=== PATIENT | male | born 1935 | race Caucasian/White ===

== ENCOUNTER 2018-04-28 08:54 | Emergency (ER) | payer MEDICARE, BC ==
--- NOTE | 2018-04-28 09:24 | EDM.PDOC ---
ED HPI GENERAL MEDICAL PROBLEM - General Chief Complaint: General Stated Complaint: RECTAL BLEEDING Time Seen by Provider: 04/28/18 09:20 Source of Information: Reports: Patient, Family, Old Records History Limitations: Reports: No Limitations - History of Present Illness INITIAL COMMENTS - FREE TEXT/NARRATIVE: 82 yo male on warfarin had a tooth pulled at the dentist's office yesterday. Did not tell the dentist he was on warfarin, has been bleeding since the extraction until now. Seems to be stopped currently. Was up with the bleeding most of the night. 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 (see below) (tea bags) - Related Data Allergies Allergy/AdvReac Type Severity Reaction Status Date / Time No Known Allergies Allergy Verified 06/10/17 09:33 Home Meds: Home Meds Allopurinol [Zyloprim] 100 mg PO DAILY 06/10/17 [History] Allopurinol [Zyloprim] 300 mg PO DAILY 06/10/17 [History] Ascorbic Acid [Vitamin C] 1,000 mg PO DAILY 06/10/17 [History] Carbidopa/Levodopa [Carbidopa-Levo 25-100 MG ODT] 1.5 mg PO TID 06/10/17 [ History] Magnesium Oxide [Magnesium] 400 mg PO DAILY 06/10/17 [History] Metoprolol Succinate [Toprol XL 100mg] 50 mg PO DAILY 06/10/17 [History] Simvastatin [Zocor] 20 mg PO BEDTIME 06/10/17 [History] Terazosin [Hytrin] 10 mg PO BEDTIME 06/10/17 [History] Ubidecarenone [Coenzyme Q10] 100 mg PO DAILY 06/10/17 [History] Warfarin [Coumadin] 2 mg PO MO 06/10/17 [History] Meclizine HCl 12.5 mg PO ASDIRECTED PRN 04/28/18 [History] Past Medical History Cardiovascular History: Reports: Afib Musculoskeletal History: Reports: Other (See Below) Neurological History: Reports: Parkinson's - Past Surgical History Musculoskeletal Surgical History: Reports: Knee Replacement ED ROS GENERAL - Review of Systems Review Of Systems: See Below Constitutional: Reports: Weakness HEENT: Reports: Other (bleeding from site of dental extraction. ) Respiratory: Reports: No Symptoms Cardiovascular: Reports: No Symptoms GI/Abdominal: Reports: No Symptoms : Reports: No Symptoms Musculoskeletal: Reports: No Symptoms Skin: Reports: No Symptoms Neurological: Reports: No Symptoms ED EXAM, GENERAL - Physical Exam Exam: See Below Exam Limited By: No Limitations General Appearance: Alert, WD/WN, No Apparent Distress, Other (pale) Eye Exam: Bilateral Eye: Normal Inspection, Other (pale conjunctivas) Ears: Normal External Exam, Normal Canal, Hearing Loss Ear Exam: Bilateral Ear: Auricle Normal Nose: Normal Inspection, Normal Mucosa, No Blood Throat/Mouth: Normal Inspection, Normal Lips, Normal Oropharynx, Normal Voice, No Airway Compromise Head: Atraumatic, Normocephalic Neck: Normal Inspection, Supple Respiratory/Chest: No Respiratory Distress, Lungs Clear, Normal Breath Sounds, No Accessory Muscle Use Cardiovascular: Regular Rate, Rhythm, No Edema GI/Abdominal: Normal Bowel Sounds, Soft, Non-Tender, No Distention Extremities: Normal Inspection, Normal Range of Motion, Non-Tender, No Pedal Edema Neurological: Alert, Oriented, CN II-XII Intact, Normal Cognition, No Motor/ Sensory Deficits Psychiatric: Normal Affect, Normal Mood Skin Exam: Warm, Dry, Intact, No Rash, Pallor Lymphatic: No Adenopathy Course - Vital Signs Text/Narrative:: Orthostats better after a liter of IV fluids Last Recorded V/S: Last Vital Signs Temp 34.9 C L 04/28/18 09:30 Pulse 61 04/28/18 09:30 Resp 13 04/28/18 09:30 BP 99/52 L 04/28/18 09:30 Pulse Ox 95 04/28/18 09:30 Orthostatic Blood Pressure [ 86/46 Standing] Orthostatic Blood Pressure [ 94/51 Sitting] Orthostatic Blood Pressure [ 132/85 Supine] - Orders/Labs/Meds Orders: Active Orders 24 hr Category Date Time Status Orthostatic Vital Signs [RC] ASDIRECTED Care 04/28/18 09:42 Active Orthostatic Vital Signs [RC] ASDIRECTED Care 04/28/18 12:04 Active Labs: Laboratory Tests 04/28/18 04/28/18 04/28/18 Range/Units 09:27 09:27 10:31 WBC 10.7 (4.5-11.0) K/uL RBC 3.90 L (4.30-5.90) M/uL Hgb 12.3 (12.0-15.0) g/dL Hct 37.6 L (40.0-54.0) % MCV 96 (80-98) fL MCH 32 H (27-31) pg MCHC 33 (32-36) % Plt Count 161 (150-400) K/uL PT 26.8 H (9.5-12.0) sec INR 2.41 H (0.80-1.20) Sodium 144 (140-148) mmol/L Potassium 5.2 (3.6-5.2) mmol/L Chloride 110 H (100-108) mmol/L Carbon Dioxide 22 (21-32) mmol/L Anion Gap 17.2 H (5.0-14.0) mmol/L BUN 58 H (7-18) mg/dL Creatinine 1.5 H (0.8-1.3) mg/dL Est Cr Clr Drug Dosing 34.27 mL/min Estimated GFR (MDRD) 45 L (>60) Glucose 189 H (74-106) mg/dL Calcium 9.2 (8.5-10.1) mg/dL Meds: Medications Discontinued Medications Generic Name Dose Route Start Last Admin Trade Name Freq PRN Reason Stop Dose Admin Lactated Ringer's 1,000 mls @ 1,000 mls/hr 04/28/18 10:31 04/28/18 10:48 Ringers, Lactated IV 04/28/18 11:30 1,000 mls/hr BOLUS ONE Administration Departure - Departure Time of Disposition: 12:25 Disposition: Home, Self-Care 01 Condition: Fair Clinical Impression: Oral bleeding, Orthostatic hypotension - Discharge Information Referrals: Jorge Manzo NP [Primary Care Provider] - Forms: ED Department Discharge - My Orders Last 24 Hours: My Active Orders 04/28/18 09:42 Orthostatic Vital Signs [RC] ASDIRECTED 04/28/18 12:04 Orthostatic Vital Signs [RC] ASDIRECTED - Assessment/Plan Last 24 Hours: My Active Orders 04/28/18 09:42 Orthostatic Vital Signs [RC] ASDIRECTED 04/28/18 12:04 Orthostatic Vital Signs [RC] ASDIRECTED
[2018-04-28] MEDS ORDERED: Lactated Ringers 1,000 ML IV ONE (10:31)
== END 2018-04-28 12:54 | disposition home or self-care (01) ==
LOC: JP.ED 08:54
DX: K13.79 Other lesions of oral mucosa (principal); I95.1 Orthostatic hypotension; I48.91 Unspecified atrial fibrillation; G20 Parkinson's disease; Z79.01 Long term (current) use of anticoagulants; Z79.899 Other long term (current) drug therapy
CPT/HCPCS: 36415; 80048; 85027; 85610; 96360; 99283; 99284; J7120

== ENCOUNTER 2018-07-16 10:50 | Emergency (ER) | payer MEDICARE, OTHER, BC ==
--- NOTE | 2018-07-16 13:31 | EDM.PDOC ---
ED HPI GENERAL MEDICAL PROBLEM - General Chief Complaint: General Stated Complaint: WEAKNESS,SHAKY,PARKINSONS Time Seen by Provider: 07/16/18 13:31 Source of Information: Reports: Patient History Limitations: Reports: No Limitations - History of Present Illness INITIAL COMMENTS - FREE TEXT/NARRATIVE: pt had profound weakness last nite. He could bearly stand and was very difficult to transfer. He had been started on a ririvostigmine patch 3 days ahead of the visit. The family did contact neurology and it was felt that the patch may be causing his symptoms. Onset: Today Duration: Hour(s): Location: Reports: Generalized Associated Symptoms: Reports: Diaphoresis, Loss of Appetite, Weakness Left Flank Pain Score (Numeric/FACES): 3 - Related Data Allergies Allergy/AdvReac Type Severity Reaction Status Date / Time No Known Allergies Allergy Verified 06/10/17 09:33 Home Meds: Home Meds Allopurinol [Zyloprim] 100 mg PO DAILY 06/10/17 [History] Allopurinol [Zyloprim] 300 mg PO DAILY 06/10/17 [History] Ascorbic Acid [Vitamin C] 1,000 mg PO DAILY 06/10/17 [History] Carbidopa/Levodopa [Carbidopa-Levo 25-100 MG ODT] 1.5 mg PO TID 06/10/17 [ History] Magnesium Oxide [Magnesium] 400 mg PO DAILY 06/10/17 [History] Metoprolol Succinate [Toprol XL 100mg] 50 mg PO DAILY 06/10/17 [History] Simvastatin [Zocor] 20 mg PO BEDTIME 06/10/17 [History] Terazosin [Hytrin] 10 mg PO BEDTIME 06/10/17 [History] Ubidecarenone [Coenzyme Q10] 100 mg PO DAILY 06/10/17 [History] Warfarin [Coumadin] 2 mg PO MO 06/10/17 [History] Meclizine HCl 12.5 mg PO ASDIRECTED PRN 04/28/18 [History] Past Medical History HEENT History: Reports: Hard of Hearing, Impaired Vision Cardiovascular History: Reports: Afib Musculoskeletal History: Reports: Other (See Below) Neurological History: Reports: Parkinson's Other Psychiatric History: parkinsons - Infectious Disease History Infectious Disease History: Reports: Chicken Pox, Measles, Mumps - Past Surgical History Musculoskeletal Surgical History: Reports: Knee Replacement Social & Family History - Tobacco Use Smoking Status *Q: Never Smoker - Caffeine Use Caffeine Use: Reports: None - Recreational Drug Use Recreational Drug Use: No ED ROS GENERAL - Review of Systems Review Of Systems: See Below Constitutional: Reports: No Symptoms HEENT: Reports: No Symptoms Respiratory: Reports: No Symptoms Cardiovascular: Reports: No Symptoms Endocrine: Reports: No Symptoms GI/Abdominal: Reports: No Symptoms : Reports: No Symptoms Musculoskeletal: Reports: Other ( severe pain in rt hip) Neurological: Reports: No Symptoms ED EXAM, GENERAL - Physical Exam Exam: See Below Free Text/Narrative:: pt arrived with a history of weakness after a patch had been added for his dementia. He became very weak and he could bearly stand. Exam Limited By: No Limitations General Appearance: Alert, Mild Distress, Other (pupils are equal and reactive. ) Ears: Normal TMs Nose: Normal Inspection Throat/Mouth: Normal Inspection Head: Atraumatic Neck: Other (no carotid bruit) Respiratory/Chest: No Respiratory Distress Cardiovascular: Regular Rate, Rhythm GI/Abdominal: Soft, Non-Tender (Male) Exam: Normal Inspection, Deferred Rectal (Males) Exam: Deferred Back Exam: Normal Inspection Extremities: Normal Inspection Neurological: Alert, Oriented, Normal Cognition Psychiatric: Normal Affect Course - Vital Signs Last Recorded V/S: Last Vital Signs Temp 35.2 C 07/16/18 12:19 Pulse 83 07/16/18 12:19 Resp 11 L 07/16/18 12:19 BP 124/79 07/16/18 12:19 Pulse Ox 96 07/16/18 12:19 - Orders/Labs/Meds Orders: Active Orders 24 hr Category Date Time Status UA W/MICROSCOPIC [URIN] Urgent Lab 07/16/18 13:29 Ordered Labs: Laboratory Tests 07/16/18 07/16/18 07/16/18 Range/Units 13:40 13:40 13:40 WBC 8.2 (4.5-11.0) K/uL RBC 4.47 (4.30-5.90) M/uL Hgb 13.8 (12.0-15.0) g/dL Hct 42.3 (40.0-54.0) % MCV 95 (80-98) fL MCH 31 (27-31) pg MCHC 33 (32-36) % Plt Count 142 L (150-400) K/uL Neut % (Auto) 72 H (36-66) % Lymph % (Auto) 18 L (24-44) % [place] % (Auto) 9 H (2-6) % Eos % (Auto) 1 L (2-4) % Baso % (Auto) 0 (0-1) % PT 21.7 H (9.5-12.0) sec INR 2.05 H (0.80-1.20) Sodium 142 (140-148) mmol/L Potassium 4.3 (3.6-5.2) mmol/L Chloride 106 (100-108) mmol/L Carbon Dioxide 28 (21-32) mmol/L Anion Gap 8.4 (5.0-14.0) mmol/L BUN 24 H D (7-18) mg/dL Creatinine 1.3 (0.8-1.3) mg/dL Est Cr Clr Drug Dosing 40.92 mL/min Estimated GFR (MDRD) 53 L (>60) Glucose 87 (74-106) mg/dL Calcium 10.1 (8.5-10.1) mg/dL Total Bilirubin 2.1 H (0.2-1.0) mg/dL AST 16 (15-37) U/L ALT 9 L (12-78) U/L Alkaline Phosphatase 106 (46-116) U/L Total Protein 6.2 L (6.4-8.2) g/dL Albumin 3.2 L (3.4-5.0) g/dL Globulin 3.0 (2.3-3.5) g/dL Albumin/Globulin Ratio 1.1 L (1.2-2.2) - Re-Assessments/Exams Free Text/Narrative Re-Assessment/Exam: 07/16/18 15:26 cat scan of the head was normal. Pt ate well. He seemes better at this time. The famikly felt like they could take care of him at home. His patch will be stopped. He will follow with Jorge Browning. Departure - Departure Time of Disposition: 15:07 Disposition: Home, Self-Care 01 Condition: Fair Clinical Impression: Adverse effects of medication, Parkinsons disease - Discharge Information Referrals: Jorge Manzo, ASSISTANT PORTFOL[employer] MANAGER [Primary Care Provider] - Forms: ED Department Discharge Care Plan Goals: stop the rivestigimne patches, cont same meds. encourage fluids, follow up appt with Jorge Browning in 4-5 days. - My Orders Last 24 Hours: My Active Orders 07/16/18 13:29 UA W/MICROSCOPIC [URIN] Urgent - Assessment/Plan Last 24 Hours: My Active Orders 07/16/18 13:29 UA W/MICROSCOPIC [URIN] Urgent
--- NOTE | 2018-07-16 13:51 | CR ---
Chest 1V Frontal HISTORY: sob COMPARISON: 10/25/2012 FINDINGS: Portable chest, 1334 hours. Lungs appear clear and normally aerated. Cardiomediastinal silhouette is within normal limits. No vas cular redistribution or pleural fluid can be seen. Bony structures and soft tissues are unremarkable. Electronic device overlying the lower left chest is presumed to be exterior to the patient. IMPRESSION: No acute chest abnormality or significant interval change is identified.
--- NOTE | 2018-07-16 15:01 | CT ---
Head wo Cont HISTORY: confusion, difficulty standing. TECHNIQUE: Spiral noncontrast CT scan of the brain was obtained along with high-resolution bone windo w reconstructions. Auto dosage and iterative reconstruction techniques were employed. FINDINGS: No acute intracranial hemorrhage or infarct is identified. There is no mass lesion, mass effect, or m idline shift. No abnormal extra-axial fluid collections are seen. There are vague low-attenuation lay nges deep white matter cerebral hemispheres bilaterally consistent with chronic microvascular ischemi c disease. There is mild to moderate generalized cerebral atrophy. There is mild atherosclerotic calc ification in the intracavernous portion of the distal ICA bilaterally. Mucosal thickening is noted in the ethmoid sinuses bilaterally. Mastoid air cells are clear. Bone windows show no evidence for skul l fracture. IMPRESSION: 1. No hemorrhage, infarct, or other acute intracranial abnormality is identified. 2. Mild to moderate generalized cerebral atrophy. 3. Chronic deep white matter microvascular ischemic changes are noted through hemispheres bilaterally . 4. Mild chronic ethmoid sinus disease bilaterally. Findings versus with Dr. Das in the emergency department at 1457 hours.
== END 2018-07-16 15:42 | disposition home or self-care (01) ==
LOC: JP.ED 10:50
DX: R53.1 Weakness (principal); T44.1X5A Adverse effect of other parasympathomimetics [cholinergics], initial encounter; G20 Parkinson's disease; I48.91 Unspecified atrial fibrillation; Z79.899 Other long term (current) drug therapy
CPT/HCPCS: 36415; 70450; 70450-26; 71045; 71045-26; 80053; 85025; 85610; 99283; 99285-25

== ENCOUNTER 2020-02-17 13:09 | Emergency (ER) | payer BC, MEDICARE, OTHER ==
[2020-02-17] MEDS ORDERED: Sodium Chloride 0.9% 10 ML Syringe FLUSH PRN (14:12)
--- NOTE | 2020-02-17 14:17 | EDM.PDOC ---
ED HPI GENERAL MEDICAL PROBLEM - General Chief Complaint: Genitourinary Problem Stated Complaint: uti? Time Seen by Provider: 02/17/20 14:10 Source of Information: Reports: Patient, Family, RN Notes Reviewed History Limitations: Reports: No Limitations - History of Present Illness INITIAL COMMENTS - FREE TEXT/NARRATIVE: 84-year-old gentleman presents emergency department with a complaint of urinary retention he is concerned he may have a urinary tract infection creased urine output last night with a foul order he has not been able to urinate today and has had poor oral intake - Related Data Allergies Allergy/AdvReac Type Severity Reaction Status Date / Time No Known Allergies Allergy Verified 02/17/20 13:32 Home Meds: Home Meds Allopurinol [Zyloprim] 300 mg PO DAILY 06/10/17 [History] Ascorbic Acid [Vitamin C] 1,000 mg PO DAILY 06/10/17 [History] Carbidopa/Levodopa [Carbidopa-Levo 25-100 MG ODT] 2 tab PO QID 06/10/17 [History ] Magnesium Oxide [Magnesium] 400 mg PO DAILY 06/10/17 [History] Metoprolol Succinate [Toprol XL 100mg] 100 mg PO DAILY 06/10/17 [History] Terazosin [Hytrin] 10 mg PO BEDTIME 06/10/17 [History] Ubidecarenone [Coenzyme Q10] 100 mg PO DAILY 06/10/17 [History] Warfarin [Coumadin] 2 mg PO ASDIRECTED 06/10/17 [History] Furosemide 20 mg PO DAILY 10/17/18 [History] Past Medical History HEENT History: Reports: Hard of Hearing, Impaired Vision Cardiovascular History: Reports: Afib, High Cholesterol, Hypertension Gastrointestinal History: Reports: Diverticulosis Genitourinary History: Reports: Urinary Incontinence Musculoskeletal History: Reports: Back Pain, Chronic, Gout, Other (See Below) Neurological History: Reports: Parkinson's Psychiatric History: Reports: Other (See Below) Other Psychiatric History: parkinsons Hematologic History: Reports: Anticoagulation Therapy - Infectious Disease History Infectious Disease History: Reports: Measles - Past Surgical History Head Surgeries/Procedures: Reports: None HEENT Surgical History: Reports: Cataract Surgery Cardiovascular Surgical History: Reports: Other (See Below) Other Cardiovascular Surgeries/Procedures: Inserted Loop Recorder for A-Fib monitorng GI Surgical History: Reports: Small Bowel Neurological Surgical History: Reports: Laminectomy Musculoskeletal Surgical History: Reports: Knee Replacement, Shoulder Surgery Dermatological Surgical History: Reports: None Social & Family History - Tobacco Use Smoking Status *Q: Never Smoker - Caffeine Use Caffeine Use: Reports: Coffee Caffeine Use Comment: very little - Recreational Drug Use Recreational Drug Use: No ED ROS GENERAL - Review of Systems Review Of Systems: See Below Constitutional: Reports: No Symptoms HEENT: Reports: No Symptoms Respiratory: Reports: No Symptoms Cardiovascular: Reports: No Symptoms GI/Abdominal: Reports: No Symptoms : Reports: Urinary Retention ED EXAM, RENAL/ - Physical Exam Exam: See Below Exam Limited By: No Limitations General Appearance: Alert, WD/WN, No Apparent Distress Respiratory/Chest: No Respiratory Distress, Lungs Clear, Normal Breath Sounds, No Accessory Muscle Use, Chest Non-Tender Cardiovascular: Regular Rate, Rhythm, No Murmur GI/Abdominal: Soft, Non-Tender Course - Vital Signs Last Recorded V/S: Last Vital Signs Temp 97.7 F 02/17/20 13:31 Pulse 89 02/17/20 13:31 Resp 16 02/17/20 13:31 BP 99/70 02/17/20 13:31 Pulse Ox 96 02/17/20 13:31 - Orders/Labs/Meds Orders: Active Orders 24 hr Category Date Time Status Peripheral IV Care [RC] . DIRECTED Care 02/17/20 14:14 Active Sodium Chloride 0.9% [Saline Flush] Med 02/17/20 14:12 Active 10 ml FLUSH ASDIRECTED PRN Peripheral IV Insertion Adult [OM.PC] Urgent Oth 02/17/20 14:12 Ordered Medication Orders Sodium Chloride (Saline Flush) 10 ml FLUSH ASDIRECTED PRN PRN Reason: Keep Vein Open Last Admin: 02/17/20 14:33 Dose: 10 ml Labs: Laboratory Tests 02/17/20 02/17/20 02/17/20 Range/Units 14:23 14:23 14:23 WBC 12.6 H (4.5-11.0) K/uL RBC 4.47 (4.30-5.90) M/uL Hgb 14.2 (12.0-15.0) g/dL Hct 43.1 (40.0-54.0) % MCV 96 (80-98) fL MCH 32 H (27-31) pg MCHC 33 (32-36) % Plt Count 153 (150-400) K/uL Neut % (Auto) 79 H (36-66) % Lymph % (Auto) 13 L (24-44) % [place] % (Auto) 8 H (2-6) % Eos % (Auto) 0 L (2-4) % Baso % (Auto) 0 (0-1) % PT 28.6 H (9.5-12.0) sec INR 2.81 H (0.80-1.20) Sodium (140-148) mmol/L Potassium (3.6-5.2) mmol/L Chloride (100-108) mmol/L Carbon Dioxide (21-32) mmol/L Anion Gap (5.0-14.0) mmol/L BUN (7-18) mg/dL Creatinine (0.8-1.3) mg/dL Est Cr Clr Drug Dosing mL/min Estimated GFR (MDRD) (>60) Glucose (74-106) mg/dL Calcium (8.5-10.1) mg/dL Urine Color (YELLOW) Urine Appearance (CLEAR) Urine pH (5.0-8.0) Ur Specific [place] (1.008-1.030) Urine Protein (NEGATIVE) mg/dL Urine Glucose (UA) (NEGATIVE) mg/dL Urine Ketones (NEGATIVE) mg/dL Urine Occult Blood (NEGATIVE) Urine Nitrite (NEGATIVE) Urine Bilirubin (NEGATIVE) Urine Urobilinogen (0.2-1.0) EU/dL Ur Leukocyte Esterase (NEGATIVE) Urine RBC (0-5) Urine WBC (0-5) Ur Epithelial Cells Amorphous Sediment Urine Bacteria Urine Mucus 02/17/20 Range/Units 15:19 WBC (4.5-11.0) K/uL RBC (4.30-5.90) M/uL Hgb (12.0-15.0) g/dL Hct (40.0-54.0) % MCV (80-98) fL MCH (27-31) pg MCHC (32-36) % Plt Count (150-400) K/uL Neut % (Auto) (36-66) % Lymph % (Auto) (24-44) % [place] % (Auto) (2-6) % Eos % (Auto) (2-4) % Baso % (Auto) (0-1) % PT (9.5-12.0) sec INR (0.80-1.20) Sodium (140-148) mmol/L Potassium (3.6-5.2) mmol/L Chloride (100-108) mmol/L Carbon Dioxide (21-32) mmol/L Anion Gap (5.0-14.0) mmol/L BUN (7-18) mg/dL Creatinine (0.8-1.3) mg/dL Est Cr Clr Drug Dosing mL/min Estimated GFR (MDRD) (>60) Glucose (74-106) mg/dL Calcium (8.5-10.1) mg/dL Urine Color [place] A (YELLOW) Urine Appearance Cloudy A (CLEAR) Urine pH 5.5 (5.0-8.0) Ur Specific [place] 1.025 (1.008-1.030) Urine Protein 100 H (NEGATIVE) mg/dL Urine Glucose (UA) Negative (NEGATIVE) mg/dL Urine Ketones Negative (NEGATIVE) mg/dL Urine Occult Blood Moderate H (NEGATIVE) Urine Nitrite Positive H (NEGATIVE) Urine Bilirubin Negative (NEGATIVE) Urine Urobilinogen 1.0 (0.2-1.0) EU/dL Ur Leukocyte Esterase Small H (NEGATIVE) Urine RBC Packed H (0-5) Urine WBC Packed H (0-5) Ur Epithelial Cells Rare Amorphous Sediment Not seen Urine Bacteria Many Urine Mucus Few Meds: Medications Generic Name Dose Route Start Last Admin Trade Name Freq PRN Reason Stop Dose Admin Sodium Chloride 10 ml 02/17/20 14:12 02/17/20 14:33 Saline Flush FLUSH 10 ml ASDIRECTED PRN Administration Keep Vein Open Departure - Departure Time of Disposition: 16:09 Disposition: Home, Self-Care 01 Condition: Fair Clinical Impression: UTI, Urinary tract infectious disease - Discharge Information Instructions: Urinary Tract Infection, Adult Referrals: Jorge Manzo NP [Primary Care Provider] - Forms: ED Department Discharge Additional Instructions: Take full course of antibiotics,, please followup with your primary care provider in 3-5 days if not better, please call return to the emergency department with worsening of symptoms. Sepsis Event Note - Evaluation Sepsis Screening Result: No Definite Risk - Focused Exam Vital Signs: Vital Signs Temp Pulse Resp BP Pulse Ox 02/17/20 13:31 97.7 F 89 16 99/70 96 02/17/20 13:28 97.7 F 89 16 99/70 96 Date Exam was Performed: 02/17/20 Time Exam was Performed: 16:07 - My Orders Last 24 Hours: My Active Orders 02/17/20 14:12 Sodium Chloride 0.9% [Saline Flush] 10 ml FLUSH ASDIRECTED PRN Peripheral IV Insertion Adult [OM.PC] Urgent 02/17/20 14:14 Peripheral IV Care [RC] . DIRECTED - Assessment/Plan Last 24 Hours: My Active Orders 02/17/20 14:12 Sodium Chloride 0.9% [Saline Flush] 10 ml FLUSH ASDIRECTED PRN Peripheral IV Insertion Adult [OM.PC] Urgent 02/17/20 14:14 Peripheral IV Care [RC] . DIRECTED Plan: Assessment Acuity = acute Site and laterality = urinary tract infection Etiology = probable bacterial cause Manifestations = retention Location of injury = Home Lab values = WBC elevated 12.6 consistent leukocytosis INR therapeutic at 2.81 creatinine elevated 1.26 consistent with chronic renal failure stage G3 a urinalysis positive for nitrates packed RBCs and packed WBCs consistent with a hematuria and pyuria respectively Plan He was able to produce urine output with some fluid intake, prescription for Bactrim DS 1 tab p.o. twice daily x14 days and follow-up with his primary care in 3 to 5 days urine culture is pending This note was dictated using [employer] voice recognition software please call with any questions on syntax or grammar.
== END 2020-02-17 16:48 | disposition home or self-care (01) ==
LOC: JP.ED 13:09 → EEVIPCON 13:09 → JP.ED 16:48
DX: N39.0 Urinary tract infection, site not specified (principal); I48.91 Unspecified atrial fibrillation; E78.00 Pure hypercholesterolemia, unspecified; I10 Essential (primary) hypertension; G20 Parkinson's disease; Z79.899 Other long term (current) drug therapy
CPT/HCPCS: 36415; 51798; 80048; 81001; 85025; 85610; 87086; 87088; 87186; 99283

== ENCOUNTER 2020-08-24 05:09 | Emergency (ER) | payer MEDICARE ==
[2020-08-24] MEDS ORDERED: Ticagrelor 90 MG Tab PO ONE (05:22)
[2020-08-24] MEDS ORDERED: Heparin Sodium 5,000 Units/ML Vial IVPUSH ONE (05:22)
[2020-08-24] MEDS ORDERED: Nitroglycerin 0.4 MG Tab.SL SL PRN (05:22)
[2020-08-24] MEDS ORDERED: Sodium Chloride 0.9% 10 ML Syringe FLUSH PRN (05:22)
[2020-08-24] MEDS ORDERED: Morphine 2 MG/ML SYRINGE IVPUSH PRN (05:22)
[2020-08-24] MEDS ORDERED: Heparin Sodium/D5W 25,000 UNITS/500 ML BAG IV SCH (05:30)
[2020-08-24] MEDS ORDERED: Aspirin 81 MG Tab.Chew PO ONE (05:38)
--- NOTE | 2020-08-24 05:42 | EDM.PDOC ---
ED HPI GENERAL MEDICAL PROBLEM - General Chief Complaint: Chest Pain Stated Complaint: CHEST PAINS Time Seen by Provider: 08/24/20 05:20 Source of Information: Reports: Patient, RN Notes Reviewed History Limitations: Reports: No Limitations - History of Present Illness INITIAL COMMENTS - FREE TEXT/NARRATIVE: 84-year-old gentleman presents emergency department a complaint of chest pain, he states he has no history of heart disease however his father did have heart troubles when he was in his 80s he had a heart attack. He has no nausea vomiting diaphoresis or shortness of breath. States the pain is in the center of his chest rated 6 out of 10 chest pain Pain Score (Numeric/FACES): 5 - Related Data Allergies Allergy/AdvReac Type Severity Reaction Status Date / Time No Known Allergies Allergy Verified 08/24/20 05:34 Home Meds: Home Meds Allopurinol [Zyloprim] 300 mg PO DAILY 06/10/17 [History] Ascorbic Acid [Vitamin C] 1,000 mg PO DAILY 06/10/17 [History] Carbidopa/Levodopa [Carbidopa-Levo 25-100 MG ODT] 2 tab PO QID 06/10/17 [History] Magnesium Oxide [Magnesium] 400 mg PO DAILY 06/10/17 [History] Metoprolol Succinate [Toprol XL 100mg] 100 mg PO DAILY 06/10/17 [History] Terazosin [Hytrin] 10 mg PO BEDTIME 06/10/17 [History] Ubidecarenone [Coenzyme Q10] 100 mg PO DAILY 06/10/17 [History] Warfarin [Coumadin] 2 mg PO ASDIRECTED 06/10/17 [History] Furosemide 20 mg PO DAILY 10/17/18 [History] Past Medical History HEENT History: Reports: Hard of Hearing, Impaired Vision Cardiovascular History: Reports: Afib, High Cholesterol, Hypertension Gastrointestinal History: Reports: Diverticulosis Genitourinary History: Reports: Urinary Incontinence Musculoskeletal History: Reports: Back Pain, Chronic, Gout, Other (See Below) Neurological History: Reports: Parkinson's Psychiatric History: Reports: Other (See Below) Other Psychiatric History: parkinsons Hematologic History: Reports: Anticoagulation Therapy - Infectious Disease History Infectious Disease History: Reports: Measles - Past Surgical History Head Surgeries/Procedures: Reports: None HEENT Surgical History: Reports: Cataract Surgery Cardiovascular Surgical History: Reports: Other (See Below) Other Cardiovascular Surgeries/Procedures: Inserted Loop Recorder for A-Fib monitorng GI Surgical History: Reports: Small Bowel Neurological Surgical History: Reports: Laminectomy Musculoskeletal Surgical History: Reports: Knee Replacement, Shoulder Surgery Dermatological Surgical History: Reports: None Social & Family History - Tobacco Use Tobacco Use Status *Q: Never Tobacco User - Caffeine Use Caffeine Use: Reports: None Caffeine Use Comment: very little - Recreational Drug Use Recreational Drug Use: No ED ROS GENERAL - Review of Systems Review Of Systems: See Below Constitutional: Reports: No Symptoms HEENT: Reports: No Symptoms Respiratory: Reports: No Symptoms Cardiovascular: Reports: Chest Pain GI/Abdominal: Reports: No Symptoms ED EXAM, GENERAL - Physical Exam Exam: See Below Exam Limited By: No Limitations General Appearance: Alert, WD/WN, No Apparent Distress Respiratory/Chest: No Respiratory Distress, Lungs Clear, Normal Breath Sounds, No Accessory Muscle Use, Chest Non-Tender Cardiovascular: No Murmur, Irregularly Irregular GI/Abdominal: Soft, Non-Tender Extremities: No Pedal Edema Course - Vital Signs Last Recorded V/S: Last Vital Signs Temp 94.6 F L 08/24/20 05:10 Pulse 90 08/24/20 05:10 Resp 20 08/24/20 05:10 BP 137/96 H 08/24/20 05:10 Pulse Ox 95 08/24/20 05:10 - Orders/Labs/Meds Orders: Active Orders 24 hr Category Date Time Status Cardiac Monitoring [RC] STAT Care 08/24/20 05:22 Ordered Communication Order [RC] Per Unit Routine Care 08/24/20 05:22 Ordered Communication Order [RC] Per Unit Routine Care 08/24/20 05:22 Ordered EKG Documentation Completion [RC] ASDIRECTED Care 08/24/20 05:25 Ordered Peripheral IV Care [RC] . DIRECTED Care 08/24/20 05:24 Ordered BASIC METABOLIC PANEL,BMP [CHEM] Stat Lab 08/24/20 05:22 Ordered INR,PT,PROTHROMBIN TIME [COAG] Stat Lab 08/24/20 05:22 Ordered PTT,PARTIAL THROMBOPLSTIN TIME [COAG] Stat Lab 08/24/20 05:22 Ordered TROPONIN I [CHEM] Stat Lab 08/24/20 05:22 Ordered Heparin Sodium/D5W [Heparin 25,000 Units in D5W 500 ML] Med 08/24/20 05:30 Ordered 25,000 units in 500 ml IV TITRATE Morphine Med 08/24/20 05:22 Ordered 2 mg IVPUSH Q10M PRN Nitroglycerin [Nitrostat] Med 08/24/20 05:22 Ordered 0.4 mg SL Q5M PRN Sodium Chloride 0.9% [Saline Flush] Med 08/24/20 05:22 Ordered 10 ml FLUSH ASDIRECTED PRN Peripheral IV Insertion Adult [OM.PC] Stat Oth 08/24/20 05:22 Ordered EKG 12 Lead [EK] Stat Ther 08/24/20 05:22 Ordered Medication Orders Heparin Sodium/Dextrose (Heparin 25,000 Units In D5w 500 Ml) 25,000 units in 500 mls @ 0 mls/hr IV TITRATE CHUY; Protocol Morphine Sulfate (Morphine) 2 mg IVPUSH Q10M PRN PRN Reason: Chest Pain Stop: 08/25/20 05:25 Nitroglycerin (Nitrostat) 0.4 mg SL Q5M PRN PRN Reason: Chest Pain Stop: 08/25/20 05:25 Sodium Chloride (Saline Flush) 10 ml FLUSH ASDIRECTED PRN PRN Reason: Keep Vein Open Labs: Laboratory Tests 08/24/20 Range/Units 05:31 WBC 6.9 (4.5-11.0) K/uL RBC 4.73 (4.30-5.90) M/uL Hgb 15.2 H (12.0-15.0) g/dL Hct 46.2 (40.0-54.0) % MCV 98 (80-98) fL MCH 32 H (27-31) pg MCHC 33 (32-36) % Plt Count 92 L (150-400) K/uL Neut % (Auto) 50 (36-66) % Lymph % (Auto) 39 (24-44) % [place] % (Auto) 8 H (2-6) % Eos % (Auto) 3 (2-4) % Baso % (Auto) 0 (0-1) % Meds: Medications Generic Name Dose Route Start Last Admin Trade Name Freq PRN Reason Stop Dose Admin Heparin Sodium/Dextrose 25,000 units in 500 mls @ 0 mls/hr 08/24/20 05:30 Heparin 25,000 Units In D5w 500 Ml IV TITRATE CHUY Protocol 12 UNITS/KG/HR Morphine Sulfate 2 mg 08/24/20 05:22 Morphine IVPUSH 08/25/20 05:25 Q10M PRN Chest Pain Nitroglycerin 0.4 mg 08/24/20 05:22 Nitrostat SL 08/25/20 05:25 Q5M PRN Chest Pain Sodium Chloride 10 ml 08/24/20 05:22 Saline Flush FLUSH ASDIRECTED PRN Keep Vein Open Discontinued Medications Generic Name Dose Route Start Last Admin Trade Name Freq PRN Reason Stop Dose Admin Heparin Sodium (Porcine) 4,000 units 08/24/20 05:22 Heparin Sodium IVPUSH 08/24/20 05:23 BOLUS ONE Ticagrelor 180 mg 08/24/20 05:22 Brilinta PO 08/24/20 05:23 ONETIME ONE Departure - Departure Time of Disposition: 05:44 Disposition: DC/Tfer to Acute Hospital 02 Reason for Transfer *Q: Primary PCI Indicated Condition: Fair Clinical Impression: STEMI (ST elevation myocardial infarction) Qualifiers: Involved coronary artery: unspecified coronary artery Qualified Code(s): I21.3 - ST elevation (STEMI) myocardial infarction of unspecified site Referrals: Jorge Manzo NP [Primary Care Provider] - Sepsis Event Note (ED) - Evaluation Sepsis Screening Result: No Definite Risk - Focused Exam Vital Signs: Vital Signs Temp Pulse Resp BP Pulse Ox 08/24/20 05:10 94.6 F L 90 20 137/96 H 95 - My Orders Last 24 Hours: My Active Orders 08/24/20 05:22 Cardiac Monitoring [RC] STAT Communication Order [RC] Per Unit Routine Communication Order [RC] Per Unit Routine BASIC METABOLIC PANEL,BMP [CHEM] Stat INR,PT,PROTHROMBIN TIME [COAG] Stat PTT,PARTIAL THROMBOPLSTIN TIME [COAG] Stat TROPONIN I [CHEM] Stat Morphine 2 mg IVPUSH Q10M PRN Nitroglycerin [Nitrostat] 0.4 mg SL Q5M PRN Sodium Chloride 0.9% [Saline Flush] 10 ml FLUSH ASDIRECTED PRN Peripheral IV Insertion Adult [OM.PC] Stat EKG 12 Lead [EK] Stat 08/24/20 05:24 Peripheral IV Care [RC] . DIRECTED 08/24/20 05:25 EKG Documentation Completion [RC] ASDIRECTED 08/24/20 05:30 Heparin Sodium/D5W [Heparin 25,000 Units in D5W 500 ML] 25,000 units in 500 ml IV TITRATE - Assessment/Plan Last 24 Hours: My Active Orders 08/24/20 05:22 Cardiac Monitoring [RC] STAT Communication Order [RC] Per Unit Routine Communication Order [RC] Per Unit Routine BASIC METABOLIC PANEL,BMP [CHEM] Stat INR,PT,PROTHROMBIN TIME [COAG] Stat PTT,PARTIAL THROMBOPLSTIN TIME [COAG] Stat TROPONIN I [CHEM] Stat Morphine 2 mg IVPUSH Q10M PRN Nitroglycerin [Nitrostat] 0.4 mg SL Q5M PRN Sodium Chloride 0.9% [Saline Flush] 10 ml FLUSH ASDIRECTED PRN Peripheral IV Insertion Adult [OM.PC] Stat EKG 12 Lead [EK] Stat 08/24/20 05:24 Peripheral IV Care [RC] . DIRECTED 08/24/20 05:25 EKG Documentation Completion [RC] ASDIRECTED 08/24/20 05:30 Heparin Sodium/D5W [Heparin 25,000 Units in D5W 500 ML] 25,000 units in 500 ml IV TITRATE Plan: Assessment Acuity = acute Site and laterality = ST elevation myocardial infarction leads V4 and V5 complicated with a right bundle branch block Etiology = probable coronary artery disease Manifestations = angina Location of injury = Home Lab values = EKG describes ST changes above lab work pending Plan Called and discussed case with Dr. Polanco braid folder [facility] at 540 he kindly accepted the patient in transport thus far he has been given 180 mg Brilinta 4000 unit bolus of heparin heparin drip will be initiated in route he has received 4 baby aspirin one nitroglycerin which provided no relief and 2 mg of morphine which did provide some relief however it did drop his blood pressure he will be transported via EMS ground This note was dictated using [employer] voice recognition software please call with any questions on syntax or grammar.
== END 2020-08-24 06:04 ==
LOC: JP.ED 05:09
DX: I21.3 ST elevation (STEMI) myocardial infarction of unspecified site (principal); I48.91 Unspecified atrial fibrillation; I10 Essential (primary) hypertension; G20 Parkinson's disease; Z79.899 Other long term (current) drug therapy; M10.9 Gout, unspecified
CPT/HCPCS: 36415; 80048; 84484; 85025; 85610; 85730; 93005; 96374; 96375; 99285; A9270; J1644; J2270; 93010

== ENCOUNTER 2020-09-18 19:56 | Emergency (ER) | payer MEDICARE ==
[2020-09-18] MEDS ORDERED: Sodium Chloride 0.9% 10 ML Syringe FLUSH PRN (20:10)
--- NOTE | 2020-09-18 20:26 | EDM.PDOC ---
ED HPI GENERAL MEDICAL PROBLEM - General Chief Complaint: Cardiovascular Problem Stated Complaint: CHEST PAIN Time Seen by Provider: 09/18/20 20:05 Source of Information: Reports: Patient, Family, Old Records, RN History Limitations: Reports: Other (patient is a poor historian) - History of Present Illness INITIAL COMMENTS - FREE TEXT/NARRATIVE: 84 yo male with an [place] reportedly 3 weeks ago tx'd at [facility] presents with CP that he says began tonight, but the says he's had much of the day. He got a single NTG tablet en route to the hospital with partial relief. No nausea or SOB. His says Plavix was the only new med prescribed after the recent [place]. He has no idea what his normal HR is. Onset: Today Onset Date: 09/18/20 Duration: Hour(s):, Improving (after NTG) Location: Reports: Chest Quality: Reports: Other ("its pretty violent") Severity: Mild (now, was worse earlier) Improves with: Reports: Medication (NTG) Worsens with: Reports: Other (unknown) Context: Reports: Other (See HPI) Associated Symptoms: Reports: Chest Pain Treatments FACTORY REPRESENTATIVE: Reports: Nitroglycerin (x one) - Related Data Allergies Allergy/AdvReac Type Severity Reaction Status Date / Time rivastigmine Allergy Cannot Verified 09/18/20 20:31 Remember Home Meds: Home Meds Ascorbic Acid [Vitamin C] 1,000 mg PO DAILY 06/10/17 [History] Carbidopa/Levodopa [Carbidopa-Levo 25-100 MG ODT] 2 tab PO QID 06/10/17 [History] Magnesium Oxide [Magnesium] 400 mg PO DAILY 06/10/17 [History] Metoprolol Succinate [Toprol XL 100mg] 100 mg PO DAILY 06/10/17 [History] Terazosin [Hytrin] 10 mg PO BEDTIME 06/10/17 [History] Furosemide 20 mg PO ASDIRECTED 10/17/18 [History] Albuterol [Ventolin HFA] 1 - 2 inh INH ASDIRECTED PRN 08/24/20 [History] Allopurinol [Zyloprim] 400 mg PO DAILY 08/24/20 [History] Ubidecarenone [Coenzyme Q10] 100 mg PO DAILY 08/24/20 [History] Warfarin [Coumadin] 1 mg PO DAILY 08/24/20 [History] Clopidogrel [Plavix] 75 mg PO DAILY 09/18/20 [History] Metoprolol Tartrate 25 mg PO Q12H #30 tablet 09/18/20 [Rx] Nitroglycerin 0.4 mg SL ASDIRECTED 09/18/20 [History] Past Medical History HEENT History: Reports: Hard of Hearing, Impaired Vision Cardiovascular History: Reports: Afib, High Cholesterol, Hypertension Gastrointestinal History: Reports: Diverticulosis Genitourinary History: Reports: Urinary Incontinence Musculoskeletal History: Reports: Back Pain, Chronic, Gout, Other (See Below) Neurological History: Reports: Parkinson's Psychiatric History: Reports: Other (See Below) Other Psychiatric History: parkinsons Hematologic History: Reports: Anticoagulation Therapy - Infectious Disease History Infectious Disease History: Reports: Measles - Past Surgical History Head Surgeries/Procedures: Reports: None HEENT Surgical History: Reports: Cataract Surgery Cardiovascular Surgical History: Reports: Other (See Below) Other Cardiovascular Surgeries/Procedures: Inserted Loop Recorder for A-Fib monitorng GI Surgical History: Reports: Small Bowel Neurological Surgical History: Reports: Laminectomy Musculoskeletal Surgical History: Reports: Knee Replacement, Shoulder Surgery Dermatological Surgical History: Reports: None Social & Family History - Caffeine Use Caffeine Use: Reports: None Caffeine Use Comment: very little ED ROS GENERAL - Review of Systems Review Of Systems: See Below Constitutional: Reports: No Symptoms HEENT: Reports: No Symptoms Respiratory: Reports: No Symptoms Cardiovascular: Reports: Chest Pain Endocrine: Reports: No Symptoms GI/Abdominal: Reports: No Symptoms : Reports: No Symptoms Musculoskeletal: Reports: No Symptoms Skin: Reports: No Symptoms Neurological: Reports: No Symptoms ED EXAM, GENERAL - Physical Exam Exam: See Below Exam Limited By: No Limitations General Appearance: Alert, WD/WN, No Apparent Distress Eye Exam: Bilateral Eye: Normal Inspection Ears: Normal External Exam, Normal Canal, Hearing Grossly Normal Ear Exam: Bilateral Ear: Auricle Normal, Canal Normal, TM normal Nose: Normal Inspection, No Blood Throat/Mouth: Normal Inspection, Normal Lips, Normal Oropharynx, Normal Voice, No Airway Compromise Head: Atraumatic, Normocephalic Neck: Normal Inspection Respiratory/Chest: No Respiratory Distress, Lungs Clear, Normal Breath Sounds, No Accessory Muscle Use Cardiovascular: Regular Rate, Rhythm, No Edema GI/Abdominal: Normal Bowel Sounds, Soft, Non-Tender, No Distention Extremities: Normal Inspection, Normal Range of Motion, Non-Tender, No Pedal Edema Neurological: Alert, Oriented, CN II-XII Intact, Normal Cognition, No Motor/Sen robert Deficits Psychiatric: Normal Affect, Normal Mood Skin Exam: Warm, Dry, Intact, Normal Color, No Rash #1 Interpretation EKG Date: 09/18/20 Time: 20:05 Rhythm: A-Fib Rate (Beats/Min): 79 [place]: Normal P-Wave: Absent QRS: LBBB ST-T: Normal QT: Normal Comparison: Change From Previous EKG (rate has slowed, PVC's present now.) Course - Vital Signs Text/Narrative:: Case discussed with [facility] @2120, no significant stenosis seen on his cath there. [place] reducing his Beta maico was appropriate based on his relative bradycardia currently. Last Recorded V/S: Last Vital Signs Temp 36.2 C 09/18/20 20:00 Pulse 47 L 09/18/20 22:02 Resp 19 09/18/20 22:02 BP 112/68 09/18/20 22:02 Pulse Ox 95 09/18/20 22:02 - Orders/Labs/Meds Orders: Active Orders 24 hr Category Date Time Status Cardiac Monitoring [RC] .As Directed Care 09/18/20 20:00 Active EKG Documentation Completion [RC] ASDIRECTED Care 09/18/20 20:00 Active Sodium Chloride 0.9% [Saline Flush] Med 09/18/20 20:10 Active 10 ml FLUSH ASDIRECTED PRN Saline Lock Insert [OM.PC] Routine Oth 09/18/20 20:10 Ordered EKG 12 Lead [EK] Routine Ther 09/18/20 19:59 Ordered Medication Orders Sodium Chloride (Saline Flush) 10 ml FLUSH ASDIRECTED PRN PRN Reason: Keep Vein Open Last Admin: 09/18/20 20:28 Dose: 10 ml Documented by: CARMELA Labs: Laboratory Tests 09/18/20 09/18/20 09/18/20 Range/Units 20:21 20:21 20:21 WBC 6.4 (4.5-11.0) K/uL RBC 4.84 (4.30-5.90) M/uL Hgb 15.2 H (12.0-15.0) g/dL Hct 48.2 (40.0-54.0) % MCV 100 H (80-98) fL MCH 31 (27-31) pg MCHC 32 (32-36) % Plt Count 130 L (150-400) K/uL PT 23.4 H (9.5-12.0) sec INR 2.18 H (0.80-1.20) Sodium 142 (140-148) mmol/L Potassium 4.8 (3.6-5.2) mmol/L Chloride 106 (100-108) mmol/L Carbon Dioxide 27 (21-32) mmol/L Anion Gap 8.8 (5.0-14.0) mmol/L BUN 22 H (7-18) mg/dL Creatinine 1.5 H (0.8-1.3) mg/dL Est Cr Clr Drug Dosing TNP Estimated GFR (MDRD) 44 L (>60) Glucose 110 H (74-106) mg/dL Calcium 10.3 H (8.5-10.1) mg/dL Magnesium (1.8-2.4) mg/dL Troponin I 0.069 H* (0.000-0.056) ng/mL 09/18/20 09/18/20 Range/Units 20:34 21:53 WBC (4.5-11.0) K/uL RBC (4.30-5.90) M/uL Hgb (12.0-15.0) g/dL Hct (40.0-54.0) % MCV (80-98) fL MCH (27-31) pg MCHC (32-36) % Plt Count (150-400) K/uL PT (9.5-12.0) sec INR (0.80-1.20) Sodium (140-148) mmol/L Potassium (3.6-5.2) mmol/L Chloride (100-108) mmol/L Carbon Dioxide (21-32) mmol/L Anion Gap (5.0-14.0) mmol/L BUN (7-18) mg/dL Creatinine (0.8-1.3) mg/dL Est Cr Clr Drug Dosing Estimated GFR (MDRD) (>60) Glucose (74-106) mg/dL Calcium (8.5-10.1) mg/dL Magnesium 2.1 (1.8-2.4) mg/dL Troponin I 0.063 H* (0.000-0.056) ng/mL Meds: Medications Generic Name Dose Route Start Last Admin Trade Name Freq PRN Reason Stop Dose Admin Sodium Chloride 10 ml 09/18/20 20:10 09/18/20 20:28 Saline Flush FLUSH 10 ml ASDIRECTED PRN Administration Keep Vein Open Discontinued Medications Generic Name Dose Route Start Last Admin Trade Name Freq PRN Reason Stop Dose Admin Carbidopa/Levodopa 1 tab 09/18/20 21:28 09/18/20 21:39 Parcopa 25-100 Mg Odt PO 09/18/20 21:29 Not Given ONETIME ONE Carbidopa/Levodopa 2 tab 09/18/20 21:38 09/18/20 21:45 Sinemet 25-100 Mg PO 09/18/20 21:39 2 tab ONETIME ONE Administration Departure - Departure Time of Disposition: 22:25 Disposition: Home, Self-Care 01 Condition: Fair Clinical Impression: Atrial fibrillation with slow ventricular response, Chest pain in adult Prescriptions: Metoprolol Tartrate 25 mg PO Q12H #30 tablet Referrals: Jorge Manzo NP [Primary Care Provider] - Forms: ED Department Discharge Additional Instructions: Replace your current metoprolol dose with metoprolol tartrate 25 mg every 12 hrs. Recheck in your doctor's office in 2-3 days for a recheck on [place]'s heart rate to see if the dose of this med needs further adjustment. Continue other medications as before. Return as needed to the ER. Sepsis Event Note (ED) - Focused Exam Vital Signs: Vital Signs Temp Pulse Resp BP Pulse Ox 09/18/20 22:02 47 L 19 112/68 95 09/18/20 21:30 42 L 16 115/71 96 09/18/20 21:13 43 L 19 114/72 92 L 09/18/20 20:51 49 L 21 H 109/70 94 L 09/18/20 20:00 36.2 C 53 L 16 107/68 93 L - My Orders Last 24 Hours: My Active Orders 09/18/20 19:59 EKG 12 Lead [EK] Routine 09/18/20 20:00 Cardiac Monitoring [RC] .As Directed EKG Documentation Completion [RC] ASDIRECTED 09/18/20 20:10 Sodium Chloride 0.9% [Saline Flush] 10 ml FLUSH ASDIRECTED PRN Saline Lock Insert [OM.PC] Routine - Assessment/Plan Last 24 Hours: My Active Orders 09/18/20 19:59 EKG 12 Lead [EK] Routine 09/18/20 20:00 Cardiac Monitoring [RC] .As Directed EKG Documentation Completion [RC] ASDIRECTED 09/18/20 20:10 Sodium Chloride 0.9% [Saline Flush] 10 ml FLUSH ASDIRECTED PRN Saline Lock Insert [OM.PC] Routine
[2020-09-18] MEDS ORDERED: Carbidopa/Levodopa 25-100 MG Tab.DIS PO ONE (21:28)
[2020-09-18] MEDS ORDERED: Carbidopa/Levodopa 25-100 MG Tab PO ONE (21:38)
== END 2020-09-18 22:45 | disposition home or self-care (01) ==
LOC: JP.ED 19:56
DX: I48.91 Unspecified atrial fibrillation (principal); I10 Essential (primary) hypertension; M10.9 Gout, unspecified; G20 Parkinson's disease; Z88.8 Allergy status to other drugs, medicaments and biological substances; Z79.899 Other long term (current) drug therapy; Z79.01 Long term (current) use of anticoagulants; Z79.02 Long term (current) use of antithrombotics/antiplatelets
CPT/HCPCS: 36415; 80048; 83735; 84484; 85027; 85610; 93005; 99285; A9270; 93010

== ENCOUNTER 2020-09-20 20:18 | Emergency (ER) | payer MEDICARE ==
--- NOTE | 2020-09-20 21:28 | EDM.PDOC ---
ED HPI GENERAL MEDICAL PROBLEM - General Chief Complaint: General Stated Complaint: COUGH Time Seen by Provider: 09/20/20 20:46 Source of Information: Reports: Patient, Family (), Old Records History Limitations: Reports: No Limitations - History of Present Illness INITIAL COMMENTS - FREE TEXT/NARRATIVE: Karan is a an 84-year-old male presenting to the ED with acute onset of cough, chest pain, shortness of breath, and dark, foul-smelling urine. The patient has not had any reported fever. Patient's daughter is a deputy sheriff chief and the [facility] and felt that he should come in for evaluation. Patient was seen on 08/24/2020 when he was diagnosed with a STEMI and sent to [place]. Patient has since recovered but has had an event recorder placed after having the STEMI. He was seen several days ago and found to be quite bradycardic secondary to his beta-blockade. They reduce the amount of metoprolol and although he had a mild elevation in his troponin, felt that it was likely not due to acute ischemia and sent the patient home. The patient returns today for evaluation after having pain around the area of the loop recorder as well as a cough and some shortness of breath. The family is concerned that he is developing a pneumonia or has a urinary tract infection. Patient has a history of Parkinson's disease and some dementia associated with it. Patient otherwise has no complaints at this time. Left Chest Pain Score (Numeric/FACES): 5 - Related Data Allergies Allergy/AdvReac Type Severity Reaction Status Date / Time rivastigmine Allergy Cannot Verified 09/20/20 20:32 Remember Home Meds: Home Meds Ascorbic Acid [Vitamin C] 1,000 mg PO DAILY 06/10/17 [History] Carbidopa/Levodopa [Carbidopa-Levo 25-100 MG ODT] 2 tab PO QID 06/10/17 [History] Magnesium Oxide [Magnesium] 400 mg PO DAILY 06/10/17 [History] Terazosin [Hytrin] 10 mg PO BEDTIME 06/10/17 [History] Furosemide 20 mg PO ASDIRECTED 10/17/18 [History] Albuterol [Ventolin HFA] 1 - 2 inh INH ASDIRECTED PRN 08/24/20 [History] Allopurinol [Zyloprim] 400 mg PO DAILY 08/24/20 [History] Ubidecarenone [Coenzyme Q10] 100 mg PO DAILY 08/24/20 [History] Warfarin [Coumadin] 1 mg PO DAILY 08/24/20 [History] Clopidogrel [Plavix] 75 mg PO DAILY 09/18/20 [History] Metoprolol Tartrate 25 mg PO Q12H #30 tablet 09/18/20 [Rx] Nitroglycerin 0.4 mg SL ASDIRECTED 09/18/20 [History] Past Medical History HEENT History: Reports: Hard of Hearing, Impaired Vision Cardiovascular History: Reports: Afib, High Cholesterol, Hypertension Other Cardiovascular History: chf Gastrointestinal History: Reports: Diverticulosis Genitourinary History: Reports: Urinary Incontinence Musculoskeletal History: Reports: Back Pain, Chronic, Gout, Other (See Below) Neurological History: Reports: Parkinson's Psychiatric History: Reports: Other (See Below) Other Psychiatric History: parkinsons Hematologic History: Reports: Anticoagulation Therapy - Infectious Disease History Infectious Disease History: Reports: Measles - Past Surgical History Head Surgeries/Procedures: Reports: None HEENT Surgical History: Reports: Cataract Surgery Cardiovascular Surgical History: Reports: Other (See Below) Other Cardiovascular Surgeries/Procedures: Inserted Loop Recorder for A-Fib monitorng GI Surgical History: Reports: Small Bowel Neurological Surgical History: Reports: Laminectomy Musculoskeletal Surgical History: Reports: Knee Replacement, Shoulder Surgery Dermatological Surgical History: Reports: None Social & Family History - Tobacco Use Tobacco Use Status *Q: Never Tobacco User - Caffeine Use Caffeine Use: Reports: None Caffeine Use Comment: very little - Recreational Drug Use Recreational Drug Use: No ED ROS GENERAL - Review of Systems Review Of Systems: See Below Constitutional: Reports: No Symptoms HEENT: Reports: No Symptoms Respiratory: Reports: Pleuritic Chest Pain, Cough Cardiovascular: Reports: Chest Pain Endocrine: Reports: No Symptoms GI/Abdominal: Reports: No Symptoms : Reports: Other (Foul-smelling dark urine) Musculoskeletal: Reports: No Symptoms Skin: Reports: No Symptoms Neurological: Reports: No Symptoms Psychiatric: Reports: No Symptoms Hematologic/Lymphatic: Reports: No Symptoms Immunologic: Reports: No Symptoms ED EXAM, GENERAL - Physical Exam Exam: See Below Exam Limited By: No Limitations General Appearance: Alert, WD/WN, No Apparent Distress Eye Exam: Bilateral Eye: EOMI, PERRL Throat/Mouth: Normal Inspection, Normal Lips, Normal Teeth, Normal Gums, Normal Oropharynx, Normal Voice, No Airway Compromise Head: Atraumatic, Normocephalic Neck: Normal Inspection, Supple, Non-Tender, Full Range of Motion. No: Carotid Bruit, Lymphadenopathy (R), Lymphadenopathy (L) Respiratory/Chest: No Respiratory Distress, Lungs Clear, Normal Breath Sounds, No Accessory Muscle Use, Chest Non-Tender. No: Crackles, Rales, Rhonchi, Wheezing Cardiovascular: Normal Peripheral Pulses, No Edema, No JVD, No Murmur, Bradycardia, Irregularly Irregular Peripheral Pulses: 2+: Radial (L), Radial (R), Posterior Tibial (L), Posterior Tibial (R) GI/Abdominal: Normal Bowel Sounds, Soft, Non-Tender, No Organomegaly, No Distention, No Abnormal Bruit (Male) Exam: Deferred Rectal (Males) Exam: Deferred Back Exam: Normal Inspection, Full Range of Motion Extremities: Normal Inspection, Normal Range of Motion, Non-Tender, No Pedal Edema, Normal Capillary Refill Neurological: Alert, Oriented, CN II-XII Intact, No Motor/Sensory Deficits Psychiatric: Normal Affect, Normal Mood Skin Exam: Warm, Dry, Intact, Normal Color, No Rash Lymphatic: No Adenopathy #1 Interpretation EKG Date: 09/20/20 Time: 20:55 Rhythm: A-Fib Rate (Beats/Min): 42 QRS: LBBB ST-T: Other (T wave inversion in 1 and aVL with early repolarization in other leads consistent with a left bundle branch block.) QT: Normal Comparison: No Change Course - Vital Signs Last Recorded V/S: Last Vital Signs Temp 35.0 C L 09/20/20 20:34 Pulse 41 L 09/20/20 21:58 Resp 14 09/20/20 21:12 BP 100/65 09/20/20 21:58 Pulse Ox 97 09/20/20 21:58 - Orders/Labs/Meds Orders: Active Orders 24 hr Category Date Time Status EKG Documentation Completion [RC] ASDIRECTED Care 09/20/20 20:49 Active Chest 2V [CR] Stat Exams 09/20/20 20:48 Taken CULTURE URINE [RM] Stat Lab 09/20/20 22:38 Ordered EKG 12 Lead [EK] Routine Ther 09/20/20 20:48 Ordered Labs: Laboratory Tests 09/20/20 09/20/2020 Range/Units 20:59 20:59 22:17 WBC 6.0 (4.5-11.0) K/uL RBC 4.57 (4.30-5.90) M/uL Hgb 14.4 (12.0-15.0) g/dL Hct 45.4 (40.0-54.0) % MCV 99 H (80-98) fL MCH 32 H (27-31) pg MCHC 32 (32-36) % Plt Count 118 L (150-400) K/uL Neut % (Auto) 59 (36-66) % Lymph % (Auto) 31 (24-44) % [place] % (Auto) 8 H (2-6) % Eos % (Auto) 2 (2-4) % Baso % (Auto) 0 (0-1) % Sodium 140 (140-148) mmol/L Potassium 4.9 (3.6-5.2) mmol/L Chloride 105 (100-108) mmol/L Carbon Dioxide 26 (21-32) mmol/L Anion Gap 9.1 (5.0-14.0) mmol/L BUN 33 H (7-18) mg/dL Creatinine 1.5 H (0.8-1.3) mg/dL Est Cr Clr Drug Dosing 34.20 mL/min Estimated GFR (MDRD) 44 L (>60) Glucose 115 H (74-106) mg/dL Calcium 9.4 (8.5-10.1) mg/dL Total Bilirubin 1.5 H (0.2-1.0) mg/dL AST 30 (15-37) U/L ALT 10 L (12-78) U/L Alkaline Phosphatase 138 H (46-116) U/L Troponin I 0.065 H* (0.000-0.056) ng/mL C-Reactive Protein 0.74 H (0.0-0.3) mg/dL Total Protein 6.3 L (6.4-8.2) g/dL Albumin 3.3 L (3.4-5.0) g/dL Globulin 3.0 (2.3-3.5) g/dL Albumin/Globulin Ratio 1.1 L (1.2-2.2) Urine Color Yellow (YELLOW) Urine Appearance Cloudy A (CLEAR) Urine pH 5.5 (5.0-8.0) Ur Specific [place] >= 1.030 (1.008-1.030) Urine Protein 100 H (NEGATIVE) mg/dL Urine Glucose (UA) Negative (NEGATIVE) mg/dL Urine Ketones Trace H (NEGATIVE) mg/dL Urine Occult Blood Negative (NEGATIVE) Urine Nitrite Positive H (NEGATIVE) Urine Bilirubin Negative (NEGATIVE) Urine Urobilinogen 0.2 (0.2-1.0) EU/dL Ur Leukocyte Esterase Small H (NEGATIVE) Urine RBC 0-5 (0-5) Urine WBC Packed H (0-5) Ur Epithelial Cells Rare Amorphous Sediment Not seen Urine Bacteria Many Urine Mucus Not seen - Re-Assessments/Exams Free Text/Narrative Re-Assessment/Exam: 09/20/20 22:40 patient's labs reveal a significant urinary tract infection with positive nitrites and packed WBCs per high field view. This is consistent with haydee pyuria. Departure - Departure Time of Disposition: 22:45 Disposition: Home, Self-Care 01 Condition: Good Clinical Impression: Urinary tract infection in male, Elevated troponin I measurement Chronic renal failure, stage 3 (moderate) Qualifiers: Chronic kidney disease stage 3 subtype: stage 3b (GFR 30-44) Qualified Code(s): N18.32 - Chronic kidney disease, stage 3b - Discharge Information *PRESCRIPTION DRUG MONITORING PROGRAM REVIEWED*: Not Applicable *COPY OF PRESCRIPTION DRUG MONITORING REPORT IN PATIENT LIBRADO: Not Applicable Instructions: Urinary Tract Infection, Adult, Chronic Kidney Disease, Adult, [id number] Referrals: Jorge Manzo NP [Primary Care Provider] - Forms: ED Department Discharge Care Plan Goals: I am starting you on cephalexin 500 mg twice daily to treat your urinary tract infection. Your chest x-ray did not demonstrate any evidence for an acute pneumonia. It did show some enlargement of your heart which seems to be stable compared to your previous x-ray 24 months ago. You still have a very slow heart rate likely due to the metoprolol which may need to be adjusted further. Please talk to your primary care provider regarding this. A urine culture is currently pending and if it shows resistance to cephalexin, you will be contacted to change antibiotics. Please return to the ED if you have any worsening of symptoms. The chest discomfort is likely due to irritation around your event recorder and is likely due to increased activity of your immune system to fight the bladder infection. Sepsis Event Note (ED) - Evaluation Sepsis Screening Result: No Definite Risk - Focused Exam Vital Signs: Vital Signs Temp Pulse Resp BP Pulse Ox 09/20/20 21:58 41 L 100/65 97 09/20/20 21:12 43 L 14 118/64 90 L 09/20/20 20:34 35.0 C L 47 L 12 123/73 92 L 09/20/20 20:29 35.0 C L 47 L 12 123/73 92 L - Problem List & Annotations (1) Chronic renal failure, stage 3 (moderate) SNOMED Code(s): 18303985, 906537482 Code(s): N18.30 - CHRONIC KIDNEY DISEASE, STAGE 3 UNSPECIFIED Status: Chronic Priority: Medium Current Visit: Yes Qualifiers: Chronic kidney disease stage 3 subtype: stage 3b (GFR 30-44) Qualified Code(s): N18.32 - Chronic kidney disease, stage 3b (2) Elevated troponin I measurement SNOMED Code(s): 283637489 Code(s): R77.8 - OTHER SPECIFIED ABNORMALITIES OF PLASMA PROTEINS Status: Chronic Priority: Medium Current Visit: Yes (3) Urinary tract infection in male SNOMED Code(s): 54402300, 012411020 Code(s): N39.0 - URINARY TRACT INFECTION, SITE NOT SPECIFIED Status: Acute Priority: High Current Visit: Yes - Problem List Review Problem List Initiated/Reviewed/Updated: Yes - My Orders Last 24 Hours: My Active Orders 09/20/20 20:48 Chest 2V [CR] Stat EKG 12 Lead [EK] Routine 09/20/20 20:49 EKG Documentation Completion [RC] ASDIRECTED 09/20/20 22:38 CULTURE URINE [RM] Stat - Assessment/Plan Last 24 Hours: My Active Orders 09/20/20 20:48 Chest 2V [CR] Stat EKG 12 Lead [EK] Routine 09/20/20 20:49 EKG Documentation Completion [RC] ASDIRECTED 09/20/20 22:38 CULTURE URINE [RM] Stat
--- NOTE | 2020-09-21 09:12 | CR ---
CHEST: 2 view CLINICAL HISTORY:Chest pain COMPARISON:2018 FINDINGS: The heart is enlarged. There is some splaying of the mainstem bronchi with some posterior deviation. This likely relates to right atrial enlargement. Only vascularity is mildly cephalized. No infiltrates are seen. There is some blunting of the left costophrenic angle which may represent minimal pleural effusion. IMPRESSION: Moderate cardiomegaly with left atrial enlargement Mild vascular cephalization with a small left pleural effusion. This may represent some cardiac decompensation
== END 2020-09-20 23:06 | disposition home or self-care (01) ==
LOC: JP.ED 20:18
DX: N39.0 Urinary tract infection, site not specified (principal); R79.89 Other specified abnormal findings of blood chemistry; I13.0 Hypertensive heart and chronic kidney disease with heart failure and stage 1 through stage 4 chronic kidney disease, or unspecified chronic kidney disease; I50.9 Heart failure, unspecified; N18.32 Chronic kidney disease, stage 3b; G31.83 Neurocognitive disorder with Lewy bodies; F02.80 Dementia in other diseases classified elsewhere, unspecified severity, without behavioral disturbance, psychotic disturbance, mood disturbance, and anxiety; M10.9 Gout, unspecified; I48.91 Unspecified atrial fibrillation; Z88.8 Allergy status to other drugs, medicaments and biological substances; Z79.01 Long term (current) use of anticoagulants; Z79.02 Long term (current) use of antithrombotics/antiplatelets
CPT/HCPCS: 36415; 71046; 71046-26; 80053; 81001; 84484; 85025; 86140; 87086; 93005; 93010; 99285-25

== ENCOUNTER 2020-10-05 19:13 | Emergency (ER) | payer MEDICARE ==
--- NOTE | 2020-10-05 20:28 | EDM.PDOC ---
ED HPI GENERAL MEDICAL PROBLEM - General Chief Complaint: Genitourinary Problem Stated Complaint: UNABLE TO URINE Time Seen by Provider: 10/05/20 20:12 Source of Information: Reports: Patient History Limitations: Reports: No Limitations - History of Present Illness INITIAL COMMENTS - FREE TEXT/NARRATIVE: pt has a history of a recent UTI. He has not been voiding freely today. His diaper was wet on arrival. Onset: Gradual Duration: Other ( he has been voiding frequently in the last 3 days. ) Location: Reports: Generalized Associated Symptoms: Reports: Other (pt just is not able to get the urine out. ) denies Pain Score (Numeric/FACES): 0 - Related Data Allergies Allergy/AdvReac Type Severity Reaction Status Date / Time rivastigmine Allergy Cannot Verified 10/05/20 19:38 Remember Home Meds: Home Meds Ascorbic Acid [Vitamin C] 1,000 mg PO DAILY 06/10/17 [History] Carbidopa/Levodopa [Carbidopa-Levo 25-100 MG ODT] 2 tab PO QID 06/10/17 [History] Magnesium Oxide [Magnesium] 400 mg PO DAILY 06/10/17 [History] Terazosin [Hytrin] 10 mg PO BEDTIME 06/10/17 [History] Furosemide 20 mg PO ASDIRECTED 10/17/18 [History] Allopurinol [Zyloprim] 400 mg PO DAILY 08/24/20 [History] Ubidecarenone [Coenzyme Q10] 100 mg PO DAILY 08/24/20 [History] Warfarin [Coumadin] 1 mg PO DAILY 08/24/20 [History] Clopidogrel [Plavix] 75 mg PO DAILY 09/18/20 [History] Nitroglycerin 0.4 mg SL ASDIRECTED 09/18/20 [History] Metoprolol Tartrate 12.5 mg PO Q12H 10/05/20 [History] Past Medical History HEENT History: Reports: Hard of Hearing, Impaired Vision Cardiovascular History: Reports: Afib, High Cholesterol, Hypertension, [place] Other Cardiovascular History: chf Gastrointestinal History: Reports: Diverticulosis Genitourinary History: Reports: Urinary Incontinence, Other (See Below) Other Genitourinary History: recent UTI Musculoskeletal History: Reports: Back Pain, Chronic, Gout, Other (See Below) Neurological History: Reports: Parkinson's Psychiatric History: Reports: Other (See Below) Other Psychiatric History: parkinsons Hematologic History: Reports: Anticoagulation Therapy - Infectious Disease History Infectious Disease History: Reports: Measles - Past Surgical History Head Surgeries/Procedures: Reports: None HEENT Surgical History: Reports: Cataract Surgery Cardiovascular Surgical History: Reports: Other (See Below) Other Cardiovascular Surgeries/Procedures: Inserted Loop Recorder for A-Fib monitorng GI Surgical History: Reports: Small Bowel Neurological Surgical History: Reports: Laminectomy Musculoskeletal Surgical History: Reports: Knee Replacement, Shoulder Surgery Dermatological Surgical History: Reports: None Social & Family History - Tobacco Use Tobacco Use Status *Q: Never Tobacco User Second Hand Smoke Exposure: No - Caffeine Use Caffeine Use: Reports: Coffee, Soda Caffeine Use Comment: very little - Recreational Drug Use Recreational Drug Use: No ED ROS GENERAL - Review of Systems Review Of Systems: See Below Constitutional: Reports: Other ( difficulty voiding. ) HEENT: Reports: No Symptoms Respiratory: Reports: No Symptoms Cardiovascular: Reports: No Symptoms Endocrine: Reports: No Symptoms GI/Abdominal: Reports: No Symptoms : Reports: Other ( difficulty voiding. ) Musculoskeletal: Reports: No Symptoms Skin: Reports: No Symptoms Neurological: Reports: No Symptoms Psychiatric: Reports: No Symptoms ED EXAM, RENAL/ - Physical Exam Exam: See Below Text/Narrative:: pt arived with a history of having difficulty voiding for the past 2-3 days. He did have a wet diaper on on arrival. There were only a few ccs in his bladder when he was scanned. Exam Limited By: No Limitations General Appearance: Alert, Anxious, Mild Distress Ears: Normal TMs Nose: Normal Inspection Throat/Mouth: Normal Inspection Head: Atraumatic Neck: Normal Inspection Respiratory/Chest: No Respiratory Distress Cardiovascular: Regular Rate, Rhythm, Bradycardia, Other ( rate was in the mid 40s. ) GI/Abdominal: Soft, Non-Tender (Male) Exam: Deferred Rectal (Males) Exam: Deferred Back Exam: Normal Inspection Extremities: Normal Inspection Course - Vital Signs Last Recorded V/S: Last Vital Signs Temp 35.5 C L 10/05/20 19:52 Pulse 45 L 10/05/20 19:52 Resp 20 10/05/20 19:52 BP 146/70 H 10/05/20 19:52 Pulse Ox 95 10/05/20 19:52 - Orders/Labs/Meds Orders: Active Orders 24 hr Category Date Time Status Treviño Catheter Insertion [Insert Urinary Catheter] [OM. Care 10/05/20 21:00 Ordered PC] Q24H Urinary Catheter Assessment [RC] ASDIRECTED Care 10/05/20 20:55 Active Sodium Chloride 0.9% [Normal Saline] 1,000 ml Med 10/05/20 20:30 Active IV ASDIRECTED Sodium Chloride 0.9% [Normal Saline] 1,000 ml Med 10/05/20 21:45 Active IV ASDIRECTED Medication Orders Sodium Chloride (Normal Saline) 1,000 mls @ 999 mls/hr IV ASDIRECTED CHUY Last Admin: 10/05/20 21:54 Dose: 999 mls/hr Documented by: Infusion: 10/05/20 21:37 Dose: 999 mls/hr Documented by: Admin: 10/05/20 20:36 Dose: 999 mls/hr Documented by: ANTON Sodium Chloride (Normal Saline) 1,000 mls @ 999 mls/hr IV ASDIRECTED CHUY Last Admin: 10/05/20 21:55 Dose: 999 mls/hr Documented by: ANTON Labs: Laboratory Tests 10/05/20 10/05/20 10/05/20 Range/Units 20:20 20:20 20:20 WBC 5.9 (4.5-11.0) K/uL RBC 4.35 (4.30-5.90) M/uL Hgb 14.2 (12.0-15.0) g/dL Hct 43.3 (40.0-54.0) % MCV 100 H (80-98) fL MCH 33 H (27-31) pg MCHC 33 (32-36) % Plt Count 122 L (150-400) K/uL Neut % (Auto) 57 (36-66) % Lymph % (Auto) 31 (24-44) % [place] % (Auto) 9 H (2-6) % Eos % (Auto) 2 (2-4) % Baso % (Auto) 0 (0-1) % Sodium 140 (140-148) mmol/L Potassium 4.8 (3.6-5.2) mmol/L Chloride 105 (100-108) mmol/L Carbon Dioxide 27 (21-32) mmol/L Anion Gap 7.8 (5.0-14.0) mmol/L BUN 28 H (7-18) mg/dL Creatinine 1.6 H (0.8-1.3) mg/dL Est Cr Clr Drug Dosing 30.98 mL/min Estimated GFR (MDRD) 41 L (>60) Glucose 88 (74-106) mg/dL Lactic Acid 1.8 (0.4-2.0) mmol/L Calcium 10.0 (8.5-10.1) mg/dL Total Bilirubin 2.1 H (0.2-1.0) mg/dL AST 25 (15-37) U/L ALT 12 (12-78) U/L Alkaline Phosphatase 126 H (46-116) U/L Total Protein 6.4 (6.4-8.2) g/dL Albumin 3.3 L (3.4-5.0) g/dL Globulin 3.1 (2.3-3.5) g/dL Albumin/Globulin Ratio 1.1 L (1.2-2.2) Urine Color (YELLOW) Urine Appearance (CLEAR) Urine pH (5.0-8.0) Ur Specific [place] (1.008-1.030) Urine Protein (NEGATIVE) mg/dL Urine Glucose (UA) (NEGATIVE) mg/dL Urine Ketones (NEGATIVE) mg/dL Urine Occult Blood (NEGATIVE) Urine Nitrite (NEGATIVE) Urine Bilirubin (NEGATIVE) Urine Urobilinogen (0.2-1.0) EU/dL Ur Leukocyte Esterase (NEGATIVE) Urine RBC (0-5) Urine WBC (0-5) Ur Epithelial Cells Amorphous Sediment Urine Bacteria Urine Mucus Urine Other 10/05/20 Range/Units 21:26 WBC (4.5-11.0) K/uL RBC (4.30-5.90) M/uL Hgb (12.0-15.0) g/dL Hct (40.0-54.0) % MCV (80-98) fL MCH (27-31) pg MCHC (32-36) % Plt Count (150-400) K/uL Neut % (Auto) (36-66) % Lymph % (Auto) (24-44) % [place] % (Auto) (2-6) % Eos % (Auto) (2-4) % Baso % (Auto) (0-1) % Sodium (140-148) mmol/L Potassium (3.6-5.2) mmol/L Chloride (100-108) mmol/L Carbon Dioxide (21-32) mmol/L Anion Gap (5.0-14.0) mmol/L BUN (7-18) mg/dL Creatinine (0.8-1.3) mg/dL Est Cr Clr Drug Dosing mL/min Estimated GFR (MDRD) (>60) Glucose (74-106) mg/dL Lactic Acid (0.4-2.0) mmol/L Calcium (8.5-10.1) mg/dL Total Bilirubin (0.2-1.0) mg/dL AST (15-37) U/L ALT (12-78) U/L Alkaline Phosphatase (46-116) U/L Total Protein (6.4-8.2) g/dL Albumin (3.4-5.0) g/dL Globulin (2.3-3.5) g/dL Albumin/Globulin Ratio (1.2-2.2) Urine Color Yellow (YELLOW) Urine Appearance Clear (CLEAR) Urine pH 6.0 (5.0-8.0) Ur Specific [place] 1.025 (1.008-1.030) Urine Protein Negative (NEGATIVE) mg/dL Urine Glucose (UA) Negative (NEGATIVE) mg/dL Urine Ketones Negative (NEGATIVE) mg/dL Urine Occult Blood Negative (NEGATIVE) Urine Nitrite Negative (NEGATIVE) Urine Bilirubin Negative (NEGATIVE) Urine Urobilinogen 0.2 (0.2-1.0) EU/dL Ur Leukocyte Esterase Negative (NEGATIVE) Urine RBC 0-5 (0-5) Urine WBC 0-5 (0-5) Ur Epithelial Cells Rare Amorphous Sediment Not seen Urine Bacteria Rare Urine Mucus Moderate Urine Other Meds: Medications Generic Name Dose Route Start Last Admin Trade Name Freq PRN Reason Stop Dose Admin Sodium Chloride 1,000 mls @ 999 mls/hr 10/05/20 20:30 10/05/20 21:54 Normal Saline IV 999 mls/hr ASDIRECTED CHUY Administration Sodium Chloride 1,000 mls @ 999 mls/hr 10/05/20 21:45 10/05/20 21:55 Normal Saline IV 999 mls/hr ASDIRECTED CHUY Administration Discontinued Medications Generic Name Dose Route Start Last Admin Trade Name Freq PRN Reason Stop Dose Admin Lidocaine HCl 10 ml 10/05/20 20:54 10/05/20 21:19 Xylocaine 2% Jelly MUCMEM 10/05/20 20:55 10 ml ONETIME ONE Administration - Re-Assessments/Exams Free Text/Narrative Re-Assessment/Exam: 10/05/20 22:30 treviño was inserted and he had 150 cc. He was given 1.5 liters iv in the ER. Departure - Departure Time of Disposition: 21:52 Disposition: Home, Self-Care 01 Condition: Fair Clinical Impression: Dehydration, Retention of urine - Discharge Information Referrals: Jorge Manzo AIX ARCHITECT [Primary Care Provider] - Forms: ED Department Discharge Care Plan Goals: push fluids, , increase hytrin to 1 1/2 tabs in split doses, leave treviño in for 2 days and then go to clinic for removal -- appt camilo Browning Sepsis Event Note (ED) - Evaluation Sepsis Screening Result: No Definite Risk - Focused Exam Vital Signs: Vital Signs Temp Pulse Resp BP Pulse Ox 10/05/20 19:52 35.5 C L 45 L 20 146/70 H 95 - My Orders Last 24 Hours: My Active Orders 10/05/20 20:30 Sodium Chloride 0.9% [Normal Saline] 1,000 ml IV ASDIRECTED 10/05/20 20:55 Urinary Catheter Assessment [RC] ASDIRECTED 10/05/20 21:00 Treviño Catheter Insertion [Insert Urinary Catheter] [OM.PC] Q24H 10/05/20 21:45 Sodium Chloride 0.9% [Normal Saline] 1,000 ml IV ASDIRECTED - Assessment/Plan Last 24 Hours: My Active Orders 10/05/20 20:30 Sodium Chloride 0.9% [Normal Saline] 1,000 ml IV ASDIRECTED 10/05/20 20:55 Urinary Catheter Assessment [RC] ASDIRECTED 10/05/20 21:00 Treviño Catheter Insertion [Insert Urinary Catheter] [OM.PC] Q24H 10/05/20 21:45 Sodium Chloride 0.9% [Normal Saline] 1,000 ml IV ASDIRECTED
[2020-10-05] MEDS: Sodium Chloride 0.9% 1,000 ML IV SCH ×2 (20:36→21:54)
[2020-10-05] MEDS ORDERED: Lidocaine 2% Jelly 10 ML Urojet MUCMEM ONE (20:54)
[2020-10-05] MEDS ORDERED: Sodium Chloride 0.9% 1,000 ML IV SCH (21:45)
== END 2020-10-05 23:10 | disposition home or self-care (01) ==
LOC: JP.ED 19:13
DX: R33.9 Retention of urine, unspecified (principal); E86.0 Dehydration; R00.1 Bradycardia, unspecified; I48.91 Unspecified atrial fibrillation; I11.0 Hypertensive heart disease with heart failure; I50.9 Heart failure, unspecified; I25.2 Old myocardial infarction; Z88.8 Allergy status to other drugs, medicaments and biological substances; Z79.01 Long term (current) use of anticoagulants; Z79.02 Long term (current) use of antithrombotics/antiplatelets; Z79.899 Other long term (current) drug therapy
CPT/HCPCS: 36415; 51702; 80053; 81001; 83605; 85025; 99283; J7030